=== PATIENT | male | born 1970 | race African-American/Black ===

== ENCOUNTER → 2019-05-30 | Outpatient (REF) | LOC: M LAB 11:25 | PROVIDERS: ATTEND Nurse Practitioner Adult Health | DX: Z00.00 Encounter for general adult medical examination without abnormal findings (principal) ==

== ENCOUNTER → 2020-05-22 | Outpatient (REF) | payer SELFPAY | LOC: M LABSMTC 11:09 → EDSTATUS 14:00 → M LABSMTC 14:04 | PROVIDERS: ATTEND Pediatrics | DX: Z20.822 Contact with and (suspected) exposure to COVID-19 (principal) ==

== ENCOUNTER → 2020-06-22 | Outpatient (CLI) | payer OTHER, SELFPAY | LOC: M LABSMTC 10:57 | PROVIDERS: ATTEND Pediatrics | DX: Z11.52 Encounter for screening for COVID-19 (principal) ==

== ENCOUNTER → 2020-06-25 | Outpatient (CLI) | payer OTHER, SELFPAY | LOC: M LABSMTC 10:05 | PROVIDERS: ATTEND Pediatrics | DX: Z11.52 Encounter for screening for COVID-19 (principal) ==

== ENCOUNTER 2021-10-02 17:45 | Emergency (ER) | payer BC, OTHER, SELFPAY ==
[~2021-10-02] VITALS: Ht 177.8 cm; Wt 84.1 kg
[2021-10-02 19:47] VITALS: BP 179/79
== END 2021-10-02 20:02 | disposition home or self-care (01) ==
LOC: M ED 17:45
DX: Z04.1 Encounter for examination and observation following transport accident (principal); V47.0XXA Car driver injured in collision with fixed or stationary object in nontraffic accident, initial encounter

== ENCOUNTER 2022-11-11 10:18 | Emergency (ER) | payer OTHER ==
[~2022-11-11] VITALS: Ht 180.3 cm; Wt 71.2 kg
[~2022-11-11 10:18] MED LIST: EMTR1TAB16 PO; ONDA4TAB6 PO; RALT40TA PO
[2022-11-11 10:20] VITALS: BP 144/78; TEMP 97.6; O2SAT 99
== END 2022-11-11 10:48 | disposition home or self-care (01) ==
LOC: M ED 10:18
DX: Z48.02 Encounter for removal of sutures (principal)